=== PATIENT | female | born 1965 | race American Indian/Alaskan Native ===

== ENCOUNTER 2022-04-04 07:27 | Day surgery (SDC) | payer MEDICARE, OTHER ==
[2022-04-04] MEDS ORDERED: SODIUM CHLORIDE 0.9% 500 ML 500 ML IV SCH (08:00)
[2022-04-04 08:11] LABS: Basophils % (Auto) 0.8 % (0.0-1.8); Eosinophils # (Auto) 0.1 K/mm3 (0.0-0.4); Eosinophils % (Auto) 2.6 % (0.0-4.3); Hematocrit 42.5 % (30.3-42.9); Hemoglobin 13.2 gm/dl (10.1-14.3); Lymphocytes # (Auto) 1.8 K/mm3 (1.2-5.4); Lymphocytes % (Auto) 32.4 % (13.4-35.0); Mean Corpuscular HGB Conc 31 % (30-34); Mean Corpuscular Volume 83 fl (79-97); Monocytes # (Auto) 0.5 K/mm3 (0.0-0.8); Monocytes % (Auto) 9.6 % (0.0-7.3); Platelet Count 206 K/mm3 (140-440); Red Blood Count 5.13 M/mm3 (3.65-5.03); Red Cell Distribution Width 16.6 % (13.2-15.2)
[2022-04-04 08:21] LABS: INR 0.91 (0.87-1.13)
[2022-04-04 08:22] LABS: Partial Thromboplastin Time 30.6 Sec. (24.2-36.6)
[2022-04-04] MEDS ORDERED: ceFAZolin/Water 2 GM/20 ML 0 GM/0 ML SYRINGE IV ONE (08:36)
[2022-04-04] MEDS ORDERED: LIDOCAINE 2%/EPINEPHRINE 1:200,000 VIAL (20 ML) INFILTRATI NR (08:53)
[2022-04-04] MEDS ORDERED: INSULIN REGULAR, HUMAN 100 UNITS/1 ML IV NR (08:55)
[2022-04-04] MEDS ORDERED: hydrALAZINE 20 MG/1 ML INJ ONE ×2 (08:57→11:42)
[2022-04-04] MEDS: hydrALAZINE 20 MG/1 ML INJ IV NR ×2 (09:02→11:52)
[2022-04-04] MEDS ORDERED: INSULIN REGULAR, HUMAN 100 UNITS/1 ML SUB-Q NR (09:54)
[2022-04-04] MEDS ORDERED: diphenhydrAMINE 50 MG/ML VIAL ONE (11:05)
[2022-04-04] MEDS: ceFAZolin/Water 2 GM/20 ML 2 GM/20 ML SYRINGE IV ONE ×2 (11:09→11:35)
[2022-04-04] MEDS ORDERED: HEPARIN/NS 5000 UNIT/500ML 500 ML IR ONE (11:17)
[2022-04-04] MEDS ORDERED: HEPARIN 10,000 UNITS/10 ML VIAL ONE (11:17)
--- NOTE | 2022-04-04 12:04 | Short Stay Summary ---
Short Stay Documentation Date of service: 04/04/22 Narrative H&P: 56-year-old female with end-stage renal disease who presents with PermCath dislodgment. No fevers. No tract pain. - History Principal diagnosis: PermCath Past Medical History: dialysis, ESRD Past Surgical History: Other (PermCath placement, PD catheter placement and removal) Social history: no significant social history - Allergies and Medications Current Medications: Allergies Sulfa (Sulfonamide Antibiotics) Allergy (Verified 04/04/22 07:51) Itching Home Medications Medication Instructions Recorded Confirmed Last Taken Type Bumetanide [Bumetanide 2 mg tab] 2 mg PO DAILY 04/04/22 04/04/22 04/04/22 History 1 tab Cinacalcet [Sensipar] 30 mg PO DAILY 04/04/22 04/04/22 04/03/22 History 1 tab Ergocalciferol (Vitamin D2) 2,000 unit PO DAILY 04/04/22 04/04/22 04/02/22 History [Vitamin D2] 1 tab Ferric Citrate (Nf) [Auryxia] 2 tab PO TID 04/04/22 04/04/22 04/03/22 History 1 tab Ferrous Sulfate [Iron 325 MG] 325 mg PO DAILY 04/04/22 04/04/22 04/04/22 History 1 tab Gabapentin [Neurontin] 300 mg PO Q8HR 04/04/22 04/04/22 04/04/22 History 1 tab Isosorbide Mononitrate [Isosorbide 120 mg PO DAILY 04/04/22 04/04/22 04/04/22 History Mononitrate ER] 1 tab Linaclotide [Linzess] 1 cap PO DAILY 04/04/22 04/04/22 04/02/22 History 1 tab amLODIPine [Norvasc] 10 mg PO DAILY 04/04/22 04/04/22 04/04/22 History 1 tab carvediloL [Coreg] 25 mg PO BID 04/04/22 04/04/22 04/04/22 History 1 tab lisinopriL [Lisinopril] 20 mg PO DAILY 04/04/22 04/04/22 04/04/22 06:00 History Active Medications Sodium Chloride (Nacl 0.9% 500 Ml) 500 mls @ 50 mls/hr IV DIRECT NOHEMI Stop: 04/04/22 20:00 - Physical exam General appearance: no acute distress, other (Overweight) HEENT: Other (No PermCath drainage, no tract pain, PermCath dislodged with cuff outside of patient) Lungs: Normal air movement Heart: Regular rate Extremities: normal temperature, normal color - Brief post op/procedure progress note Date of procedure: 04/04/22 Pre-op diagnosis: PermCath malfunction Post-op diagnosis: same Procedure: Venography and PermCath exchange Anesthesia: local Surgeon: ISRRAEL ZHANG Estimated blood loss: minimal Condition: stable - Hospital course Hospital course: Patient tolerated the procedure well. No immediate postprocedural complications. Patient was provided 10 units of regular insulin divided into 6 and 4 units of insulin prior to procedure. Blood sugar decreased into the 200s from the 300s. Hydralazine provided for hypertension. Patient has recently not been taking her diabetic medication, but reordered the medication, and should be coming in the next day or 2. Counseled patient on if she develops hyperglycemia, to come to the emergency room for treatment until her medication arrives. Patient understands. - Disposition Condition at discharge: Stable Disposition: 01 HOME / SELF CARE / HOMELESS - Discharge Diagnoses (1) Hyperglycemia Status: Acute (2) Hyperglycemia due to type 2 diabetes mellitus Status: Acute (3) End stage renal disease Status: Acute (4) Complications, dialysis, catheter, mechanical Status: Acute Short Stay Discharge Plan Activity: advance as tolerated Weight Bearing Status: Weight Bear as Tolerated Diet: diabetic, renal, other (Check blood sugar. If blood sugar is greater than 300, go to seek medical attention to treat blood sugar.) Wound: keep clean and dry Follow up with: JESSICA MUNIZ MD [Primary Care Provider] - 7 Days
--- NOTE | 2022-04-04 12:10 | Operative Report ---
Operative Report Operative Report: EXAM: 1. Fluoroscopic guided exchange of a right internal jugular tunneled cuffed hemodialysis catheter. 2. Superior venacava venography DATE: 04/04/2022 INDICATION: ESRD with permcath malfunction. MEDICATIONS: Please see nursing report for full details. PR[employer]ED [employer]ARDS LAMINATOR: ISRRAEL ZHANG MD DEVICES: 23 cm tip to cuff 15 Fr dual lumen hemodialysis catheter ; existing catheter was a 23 cm tip to cuff dual lumen hemodialysis catheter CONTRAST: Less than 20 mL nonionic contrast. PROCEDURE: The risks, benefits, and alternatives were discussed and informed consent was obtained. The patient was transported to the angiography suite in satisfactory/stable condition and was transported onto the angiography table. The patient was prepped and draped in a sterile fashion. The existing PermCath was prepped and draped in a sterile fashion. Heparin was removed from the lumens and then saline was used to flush the lumens. Digital subtraction angiography was performed through one of the lumens demonstrating patency of the SVC. A stiff angled Glidewire was advanced through both of the lumen of the existing PermCath. The wires were passed into the IVC. Lidocaine was used to anesthetize the existing PermCath dermatotomy. Over the 0.035 inch wires, the existing PermCath was removed and the wires were cleaned with chlorprep. A new PermCath was advanced over the wires and position centrally under fluoroscopic guidance. The catheter was aspirated and flushed demonstrating excellent flow. 2-0 Ethilon suture was used to secure the catheter at the dermatotomy. The catheter was charged with heparin 1000 units/mL space. Sterile dressing and biopatch applied. The patient was transferred from the angiography suite back to the floor in stable condition. FINDINGS: 1. Excellent flow was obtained through the dialysis catheter with 20 mL syringes. 2. The new catheter tip is in the right atrium. 3. Superior vena cava venography demonstrates patency of the superior vena cava. IMPRESSION: 1. Successful fluoroscopic guided replacement of a right internal jugular tunneled cuffed hemodialysis catheter. 2. Successful venography of the SVC
[2022-04-04 12:52] VITALS: BP 155/70
== END 2022-04-04 07:28 | disposition home or self-care (01) ==
LOC: CATHLABREC 07:27
PROVIDERS: ATTEND Radiology Diagnostic Radiology
DX: T82.898A Other specified complication of vascular prosthetic devices, implants and grafts, initial encounter (principal); I13.2 Hypertensive heart and chronic kidney disease with heart failure and with stage 5 chronic kidney disease, or end stage renal disease; E11.22 Type 2 diabetes mellitus with diabetic chronic kidney disease; N18.6 End stage renal disease; E11.65 Type 2 diabetes mellitus with hyperglycemia; I50.9 Heart failure, unspecified; K21.9 Gastro-esophageal reflux disease without esophagitis; D64.9 Anemia, unspecified; Z88.2 Allergy status to sulfonamides; Z79.899 Other long term (current) drug therapy; Z98.49 Cataract extraction status, unspecified eye; Z98.890 Other specified postprocedural states; Z90.710 Acquired absence of both cervix and uterus; Z90.49 Acquired absence of other specified parts of digestive tract; Y82.8 Other medical devices associated with adverse incidents; Y92.89 Other specified places as the place of occurrence of the external cause
CPT/HCPCS: 36415; 36581; 77001; 80048; 82962; 85025; 85610; 85730; C1750; C1769; J0360; J0690; J1200; J1644; J3490; J7040; 96372; 96374; Q9967; J1815